=== PATIENT | male | born 1985 | race Caucasian/White ===

== ENCOUNTER 2018-10-26 15:36 | Emergency (ER) | payer SELFPAY ==
[~2018-10-26] VITALS: Ht 165.1 cm; Wt 75.0 kg
[2018-10-26 15:41] VITALS: Ht 165.1 cm; Wt 75.0 kg
[2018-10-26] MEDS ORDERED: KETOROLAC 30 MG INJ IM STA (17:58)
[2018-10-26] MEDS ORDERED: IBUP-1542 PO (20:04)
[2018-10-26] MEDS ORDERED: ACET500T98 PO (20:04)
[2018-10-26 20:23] VITALS: BP 136/81; PULSE 67; RESP 18
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
== END 2018-10-26 20:29 | disposition home or self-care (01) ==
LOC: FTE 15:36
DX: S62.201A Unspecified fracture of first metacarpal bone, right hand, initial encounter for closed fracture (principal); F17.210 Nicotine dependence, cigarettes, uncomplicated; Y09 Assault by unspecified means
CPT/HCPCS: 29125; 73080; 73090; 73110; 73130; 96372; 99284; J1885